=== PATIENT | female | born 1975 | race Caucasian/White ===

== ENCOUNTER 2016-08-30 09:42 | Inpatient (IN) | payer OTHER ==
[2016-08-30] MEDS ORDERED: ACETAMINOPHEN 325 MG TABLET (FP) PO ONE ×2 (10:02→13:49)
[2016-08-30 10:10] VITALS: BMI 22.3
[2016-08-30 11:35] LABS: URINE APPEARANCE CLOUDY; URINE COLOR AMBER; URINE GLUCOSE (UA) 2+ (NEGATIVE); URINE KETONE 1+ (NEGATIVE); URINE NITRITE NEGATIVE (NEGATIVE); URINE UROBILINOGEN 2.0 E.U/dl E.U./dl (0.2-1.0)
[2016-08-30 11:36] LABS: URINE BLOOD 3+ (NEGATIVE); URINE LEUK ESTERASE TRACE (NEGATIVE); URINE PROTEIN 3+ (NEGATIVE)
[2016-08-30 11:41] LABS: URINE HYALINE CAST 7 /lpf; URINE MUCUS MANY; URINE RBC 1071 /hpf (0-3); URINE WBC 27 /hpf (3-5); WAXY CAST 3 /lpf
[2016-08-30] MEDS ORDERED: SODIUM CHLORIDE 0.9% 500 ML INFUS.BAG IV STA (11:41)
[2016-08-30] MEDS ORDERED: ACETAMINOPHEN INJECTION 100 ML IVPB ONE (11:54)
[2016-08-30] MEDS: ACETAMINOPHEN 1000 MG/100 ML VIAL (NON FORMULARY) IVPB ONE ×2 (12:02→12:06)
[2016-08-30 12:15] LABS: MCH 31.2 pg (25.7-33.7); MCHC 34.6 g/dl (32.0-36.0); MEAN CELL VOLUME 90.2 fl (80-96); MEAN PLT VOLUME 8.1 fl (7.5-11.1); PLATELET COUNT 123 K/MM3 (134-434); RDW 13.7 % (11.6-15.6); WHITE BLOOD COUNT 6.8 K/mm3 (4.0-10.0)
[2016-08-30] MEDS ORDERED: CEFAZOLIN 1 GM/D5W 50 ML IVPB ONE (12:15)
--- NOTE | 2016-08-30 12:20 | PDOC ---
History of Present Illness - General Chief Complaint: Cold Symptoms Stated Complaint: FEVER, CHILLS, HEADACHE Time Seen by Provider: 08/30/16 10:51 History Source: Patient, Friend - History of Present Illness Initial Comments: 08/30/16 12:17 41 yr female history of NIDDM presents with fever, chills body aches for one day. Pt denies abd pain no urinary complaints, vomited once today. no sick contacts, works in [employer] no flu vaccine given this year. No foreign travel , denies no vaginal discharge . 08/30/16 12:19 08/30/16 14:08 Severity: mild, moderate Associated Symptoms: reports: fever/chills, nausea/vomiting Past History - Past Medical History Allergies/Adverse Reactions: Allergies Allergy/AdvReac Type Severity Reaction Status Date / Time No Known Allergies Allergy Verified 08/30/16 10:02 Home Medications: Ambulatory Orders Metformin HCl 500 mg PO BID 08/30/16 Diabetes: Yes - Family Disease History Comment:: 08/30/16 12:19 none relevant - Psycho/Social/Smoking Cessation Hx Suicidal Ideation: No Smoking History: Never smoked Hx Alcohol Use: No Drug/Substance Use Hx: No Substance Use Type: None Review of Systems - Review of Systems Able to Perform ROS?: Yes Is the patient limited Arabic proficient: No Constitutional: Yes: Symptoms Reported, Fever, Malaise, Weakness HEENTM: No: Symptoms Reported Respiratory: Yes: Symptoms reported, Cough Cardiac (ROS): No: Symptoms Reported ABD/GI: No: Symptoms Reported : No: Symptoms Reported Musculoskeletal: Yes: Joint Pain Integumentary: No: Symptoms Reported Neurological: No: Symptoms reported *Physical Exam - Vital Signs Last Vital Signs Temp Pulse Resp BP Pulse Ox 101.6 F H 126 H 20 95/57 98 08/30/16 09:59 08/30/16 09:59 08/30/16 09:59 08/30/16 09:59 08/30/16 09:59 - Physical Exam General Appearance: Yes: Nourished, Appropriately Dressed HEENT: positive: EOMI, PAULA, Normal ENT Inspection Neck: positive: Supple. negative: Tender (currently menstruating) Respiratory/Chest: positive: Lungs Clear, Normal Breath Sounds. negative: Chest Tender, Accessory Muscle Use Cardiovascular: positive: Regular Rhythm, Regular Rate Female Pelvic Exam: positive: vaginal bleeding Gastrointestinal/Abdominal: positive: Normal Bowel Sounds, Soft Musculoskeletal: positive: Normal Inspection. negative: CVA Tenderness, CVA Tenderness (R) Extremity: positive: Normal Capillary Refill, Normal Inspection, Normal Range of Motion. negative: Pedal Edema Integumentary: positive: Normal Color, Dry, Warm Neurologic: positive: Fully Oriented, Alert, Normal Mood/Affect, Normal Response , Motor Strength 5/5 ED Treatment Course - LABORATORY CBC & Chemistry Diagram: 08/31/16 07:00 08/31/16 07:00 - ADDITIONAL ORDERS Additional order review: Laboratory Results 08/30/16 11:12 Urine Color Jacquelin Urine Appearance Cloudy Urine pH 5.0 Ur Specific [place] 1.033 Urine Protein 3+ H Urine Glucose (UA) 2+ H Urine Ketones 1+ H Urine Blood 3+ H Urine Nitrite Negative Urine Bilirubin 2.0 Urine Urobilinogen 2.0 e.u/dl H Ur Leukocyte Esterase Trace H Urine RBC 1071 Urine WBC 27 Ur Epithelial Cells Rare Hyaline Casts 7 Waxy Casts 3 Urine Mucus Many Urine HCG, Qual Negative 08/30/16 11:12 Influenza Types A,B Antigen (JONATHAN) - Final Nasopharyngeal Swab - Final - Medications Given in the ED: ED Medications Discontinued Medications Generic Name Dose Route Start Last Admin Trade Name Freq PRN Reason Stop Dose Admin Acetaminophen 650 mg 08/30/16 10:02 08/30/16 10:03 Tylenol - PO 08/30/16 10:03 650 mg NOW ONE Administration Acetaminophen 1,000 mg 08/30/16 11:41 08/30/16 12:06 Ofirmev Injection - IVPB 08/30/16 11:42 Not Given ONCE ONE Sodium Chloride 1,000 ml 08/30/16 11:41 08/30/16 11:57 Normal Saline - IV 08/30/16 11:42 1,000 ml ONCE STA Administration Medical Decision Making - Medical Decision Making 08/30/16 14:01 cc: fever, body aches, chills , vomiting this am will check labs, flu, urine IVF, tylenol 08/30/16 14:01 pt has rigors , chills nausea, labs and US reviewed. discussed [facility] ER attending who agrees with plan. will admit to hospitalist discussed case *DC/Admit/Observation/Transfer Diagnosis at time of Disposition: Fever and chills, Pyelonephritis - Discharge Dispostion Admit: Yes
[2016-08-30] MEDS ORDERED: CEFAZOLIN (PRE-DOCKED) 50 ML IVPB ONE (12:25)
[2016-08-30 12:28] LABS: ALBUMIN 3.4 g/dl (3.4-5.0); ALK PHOS 77 U/L (45-117); ANION GAP 10 (8-16); BILIRUBIN,TOTAL 0.7 mg/dL (0.2-1.0); CO2 24 mmol/L (21-32); GLUCOSE,RANDOM 243 mg/dL (74-106); SGOT/AST 35 U/L (15-37); SGPT/ALT 48 U/L (12-78); TOT PROT 6.4 g/dl (6.4-8.2)
[2016-08-30] MEDS ORDERED: ACETAMINOPHEN 325 MG TABLET (FP) ONE (13:55)
[2016-08-30] MEDS ORDERED: SODIUM CHLORIDE 1,000 ML IV SCH (14:30)
[2016-08-30] MEDS ORDERED: ONDANSETRON 4 MG/2 ML VIAL IVPB PRN (14:47)
--- NOTE | 2016-08-30 15:01 | HP ---
CHIEF COMPLAINT: Fever and chills HISTORY OF PRESENT ILLNESS: This is a 41-year-old woman who comes to the ER today complaining of headache, fever and chills for the last 4 days. Today she developed epigastric pain and nausea, and she vomited once. She denies cough, sore throat, cheat pain, diarrhea, flank pain, hematuria, urinary frequency. She has had a few episodes of dysuria in the last few weeks. PAST MEDICAL HISTORY Type 2 diabetes mellitus PAST SURGICAL HISTORY None Allergies No Known Allergies Allergy (Verified 08/30/16 10:02) HOME MEDICATIONS 3 Medication Instructions Recorded Metformin HCl 500 mg PO BID 08/30/16 Social History: Smoking: Never smoked Alcohol: None Drugs: None Recent Travel: No Family History: Non-contributory REVIEW OF SYSTEMS CONSTITUTIONAL: Present: fever, chills. Absent: diaphoresis, generalized weakness, malaise, loss of appetite, weight change HEENT: Absent: rhinorrhea, nasal congestion, throat pain, throat swelling, difficulty swallowing, mouth swelling, ear pain, eye pain, visual changes CARDIOVASCULAR: Absent: chest pain, syncope, palpitations, lightheadedness, peripheral edema RESPIRATORY: Absent: cough, shortness of breath, dyspnea with exertion, orthopnea, wheezing, stridor, hemoptysis GASTROINTESTINAL: Present epigastric pain, nausea, vomiting. Absent: abdominal distension, diarrhea, constipation, melena, hematochezia GENITOURINARY: Present: dysuria. Absent: frequency, urgency, hesitancy, hematuria, flank pain MUSCULOSKELETAL: Absent: myalgia, arthralgia, joint swelling, back pain, neck pain SKIN: Absent: rash, itching, pallor HEMATOLOGIC/IMMUNOLOGIC: Absent: easy bleeding, easy bruising, lymphadenopathy, frequent infections ENDOCRINE: Absent: unexplained weight gain, unexplained weight loss, heat intolerance, cold intolerance NEUROLOGIC: Present: headache. Absent: focal weakness, paresthesias, dizziness , unsteady gait, seizure, mental status changes, bladder or bowel incontinence PSYCHIATRIC: Absent: anxiety, depression, suicidal or homicidal ideation, hallucinations. PHYSICAL EXAMINATION Vital Signs Period Temp Pulse Resp BP Sys/Barnard Pulse Ox Last 24 Hr 101.6 F 126 20 95/57 98 GENERAL: Awake, alert, and fully oriented, in no acute distress. HEAD: Normal with no signs of trauma. EYES: Pupils equal, round and reactive to light, extraocular movements intact, sclerae anicteric, conjunctivae clear. EARS, NOSE, THROAT: Ears normal, nares patent, oropharynx clear without exudates. Moist mucous membranes. NECK: Normal range of motion, supple without lymphadenopathy, JVD, or masses. LUNGS: Breath sounds equal, clear to auscultation bilaterally. No wheezes, and no crackles. No accessory muscle use. HEART: Tachycardic, normal S1 and S2 without murmur, rub or gallop. ABDOMEN: Soft, nontender, not distended, normoactive bowel sounds, no guarding, no rebound, no masses. No hepatomegaly or splenomegaly. MUSCULOSKELETAL: Normal range of motion at all joints. No bony deformities or tenderness. No CVA tenderness. UPPER EXTREMITIES: 2+ pulses, warm, well-perfused. No cyanosis. No clubbing. Cap refill <2 seconds. No peripheral edema. LOWER EXTREMITIES: 2+ pulses, warm, well-perfused. No calf tenderness. No peripheral edema. NEUROLOGICAL: Cranial nerves II-XII intact. Normal speech. Gait not observed. PSYCHIATRIC: Cooperative. Good eye contact. Appropriate mood and affect. SKIN: Warm, dry, normal turgor, no rashes or lesions noted. Laboratory Tests 08/30/16 08/30/16 08/30/16 11:12 11:42 11:42 WBC 6.8 RBC 3.98 Hgb 12.4 Hct 35.9 MCV 90.2 MCHC 34.6 RDW 13.7 Plt Count 123 L MPV 8.1 Sodium 132 L Potassium 4.2 Chloride 98 Carbon Dioxide 24 Anion Gap 10 BUN 18 Creatinine 1.0 Creat Clearance w eGFR > 60 Random Glucose 243 H Calcium 8.0 L Total Bilirubin 0.7 AST 35 ALT 48 Alkaline Phosphatase 77 Total Protein 6.4 Albumin 3.4 Urine Color Jacquelin Urine Appearance Cloudy Urine pH 5.0 Ur Specific [place] 1.033 Urine Protein 3+ H Urine Glucose (UA) 2+ H Urine Ketones 1+ H Urine Blood 3+ H Urine Nitrite Negative Urine Bilirubin 2.0 Urine Urobilinogen 2.0 e.u/dl H Ur Leukocyte Esterase Trace H Urine RBC 1071 Urine WBC 27 Ur Epithelial Cells Rare Hyaline Casts 7 Waxy Casts 3 Urine Mucus Many Urine HCG, Qual Negative Chest x-ray: No acute process. Renal US: Minimal fullness of renal pelvic calyceal systems bilaterally. Gallbladder polyps vs non-shadowing stones. ASSESSMENT/PLAN: This is a 41-year-old woman with a history of type 2 DM who comes to the ER today with fever, chills, headache, epigastric pain, nausea and vomiting. She had temp 101.6, HR 126. She was found to have WBC 6.8, platelets 123, sodium 132 , glucose 243. Urinalysis is positive for 3+ protein, 2+ glucose, 1+ ketones, 3 + blood, bilirubin 2.0, urobilinogen 2.0, trace leukocyte esterase, 27 WBC. Renal US showed minimal fullness of bilateral renal calyceal systems. 1. Sepsis secondary to UTI - Check lactic acid - IV fluid - Rocephin - Follow up blood, urine cultures - Zofran as needed for nausea - CT to evaluate for stones/obstruction given abnormal US 2. Type 2 diabetes mellitus - Hold Metformin - Fingersticks with Novolog sliding scale 3. Hyponatremia, mild - Corrected sodium is 134 - IV normal saline - Monitor electrolytes 4. Thrombocytopenia, likely secondary to sepsis - Monitor platelets Problem List - Problem (1) Sepsis Code(s): A41.9 - SEPSIS, UNSPECIFIED ORGANISM (2) UTI (urinary tract infection) Code(s): N39.0 - URINARY TRACT INFECTION, SITE NOT SPECIFIED (3) Hyponatremia Code(s): E87.1 - HYPO-OSMOLALITY AND HYPONATREMIA (4) Thrombocytopenia Code(s): D69.6 - THROMBOCYTOPENIA, UNSPECIFIED (5) Type 2 diabetes mellitus Code(s): E11.9 - TYPE 2 DIABETES MELLITUS WITHOUT COMPLICATIONS Visit type - Emergency Visit Emergency Visit: Yes ED Registration Date: 08/30/16 Care time: The patient presented to the Emergency Department on the above date and was hospitalized for further evaluation of their emergent condition. - New Patient This patient is new to me today: Yes Date on this admission: 08/30/16 - Critical Care Critical Care patient: No
[2016-08-30] MEDS ORDERED: CEFTRIAXONE 50 ML ONE (18:18)
[2016-08-30] MEDS: CEFTRIAXONE 50 ML IVPB SCH (18:25)
[2016-08-30] MEDS: INSULIN SLIDING SCALE (NOVOLOG) 1 VIAL SQ SCH (18:25)
[2016-08-30] MEDS: SODIUM CHLORIDE 1,000 ML IV SCH ×2 (18:25→20:07)
[2016-08-31] MEDS: ACETAMINOPHEN 325 MG TABLET (FP) PO PRN ×2 (01:35→12:35)
[2016-08-31] MEDS ORDERED: SODIUM CHLORIDE 500 ML IV STA (02:04)
[2016-08-31] MEDS: SODIUM CHLORIDE 1,000 ML IV SCH ×2 (04:39→13:41)
[2016-08-31] MEDS: INSULIN SLIDING SCALE (NOVOLOG) 1 VIAL SQ SCH ×3 (06:13→16:34)
[2016-08-31 08:37] LABS: BASOPHIL 0.3 % (0-2.0); MCH 31.5 pg (25.7-33.7); MCHC 34.5 g/dl (32.0-36.0); MEAN CELL VOLUME 91.2 fl (80-96); MEAN PLT VOLUME 8.3 fl (7.5-11.1); NEUTROPHILS 86.4 % (42.8-82.8); PLATELET COUNT 86 K/MM3 (134-434); RDW 13.7 % (11.6-15.6); WHITE BLOOD COUNT 4.8 K/mm3 (4.0-10.0)
[2016-08-31 08:41] LABS: CREATININE 0.4 mg/dL (0.55-1.02)
[2016-08-31 08:55] LABS: CALCIUM 6.5 mg/dL (8.5-10.1)
--- NOTE | 2016-08-31 09:04 | PN ---
Teaching Attending Note Name of Resident: Margot Friedman ATTENDING PHYSICIAN STATEMENT I saw and evaluated the patient. I reviewed the resident's note and discussed the case with the resident. I agree with the resident's findings and plan as documented. SUBJECTIVE: Patient is having fever of 101.8, warm to touch at the time of examination. OBJECTIVE: Vital Signs Temperature 97.7 F 08/31/16 06:00 Pulse Rate 88 08/31/16 06:00 Respiratory Rate 08/31/16 06:00 Blood Pressure 90/55 08/31/16 06:00 O2 Sat by Pulse Oximetry (%) 98 08/30/16 18:26 no CVA tenderness. CBCD WBC 4.8 K/mm3 (4.0-10.0) 08/31/16 07:00 RBC 3.09 M/mm3 (3.60-5.2) L D 08/31/16 07:00 Hgb 9.7 GM/dL (10.7-15.3) L D 08/31/16 07:00 Hct 28.2 % (32.4-45.2) L D 08/31/16 07:00 MCV 91.2 fl (80-96) 08/31/16 07:00 MCHC 34.5 g/dl (32.0-36.0) 08/31/16 07:00 RDW 13.7 % (11.6-15.6) 08/31/16 07:00 Plt Count 86 K/MM3 (134-434) L D 08/31/16 07:00 MPV 8.3 fl (7.5-11.1) 08/31/16 07:00 CMP Sodium 143 mmol/L (136-145) 08/31/16 07:00 Potassium 3.6 mmol/L (3.5-5.1) 08/31/16 07:00 Chloride 111 mmol/L (98-107) H D 08/31/16 07:00 Carbon Dioxide 24 mmol/L (21-32) 08/31/16 07:00 Anion Gap 8 (8-16) 08/31/16 07:00 BUN 8 mg/dL (7-18) D 08/31/16 07:00 Creatinine 0.4 mg/dL (0.55-1.02) L D 08/31/16 07:00 Creat Clearance w eGFR > 60 (>60) 08/30/16 11:42 Random Glucose 85 mg/dL (74-106) D 08/31/16 07:00 Calcium 6.5 mg/dL (8.5-10.1) L* 08/31/16 07:00 Total Bilirubin 0.7 mg/dL (0.2-1.0) 08/30/16 11:42 AST 35 U/L (15-37) 08/30/16 11:42 ALT 48 U/L (12-78) 08/30/16 11:42 Alkaline Phosphatase 77 U/L (45-117) 08/30/16 11:42 Total Protein 6.4 g/dl (6.4-8.2) 08/30/16 11:42 Albumin 3.4 g/dl (3.4-5.0) 08/30/16 11:42 Current Medications Generic Name Dose Route Start Last Admin Trade Name Freq PRN Reason Stop Dose Admin Acetaminophen 650 mg 08/30/16 14:47 08/31/16 01:35 Tylenol - PO 650 mg Q4H PRN Administration FEVER OR PAIN Sodium Chloride 1,000 mls @ 125 mls/hr 08/30/16 15:00 08/31/16 04:39 Normal Saline - IV 125 mls/hr ASDIR TESSA Administration Ceftriaxone Sodium 50 mls @ 100 mls/hr 08/30/16 17:15 08/30/16 18:25 Rocephin 1gm Ivpb (Pre-Docked) IVPB 100 mls/hr DAILY TESSA Administration Insulin Aspart 1 vial 08/30/16 16:30 08/31/16 06:13 Novolog Vial Sliding Scale - SQ Not Given TIDAC [facility] Protocol Ondansetron HCl 4 mg 08/30/16 14:47 Zofran Injection IVPB Q4H PRN NAUSEA Medication Instructions Recorded Metformin HCl 500 mg PO BID 08/30/16 Urine Test Results Urine Color Jacquelin 08/30/16 11:12 Urine Appearance Cloudy 08/30/16 11:12 Urine pH 5.0 (5.0-8.0) 08/30/16 11:12 Ur Specific [place] 1.033 (1.001-1.035) 08/30/16 11:12 Urine Protein 3+ (NEGATIVE) H 08/30/16 11:12 Urine Glucose (UA) 2+ (NEGATIVE) H 08/30/16 11:12 Urine Ketones 1+ (NEGATIVE) H 08/30/16 11:12 Urine Blood 3+ (NEGATIVE) H 08/30/16 11:12 Urine Nitrite Negative (NEGATIVE) 08/30/16 11:12 Urine Bilirubin 2.0 (NEGATIVE) 08/30/16 11:12 Ur Leukocyte Esterase Trace (NEGATIVE) H 08/30/16 11:12 Urine RBC 1071 /hpf (0-3) 08/30/16 11:12 Urine WBC 27 /hpf (3-5) 08/30/16 11:12 Ur Epithelial Cells Rare /hpf (FEW) 08/30/16 11:12 Urine Mucus Many 08/30/16 11:12 Chest x-ray: No acute process. Renal US: Minimal fullness of renal pelvic calyceal systems bilaterally. Gallbladder polyps vs non-shadowing stones. ASSESSMENT/PLAN: This is a 41-year-old woman with a history of type 2 DM who comes to the ER today with fever, chills, headache, epigastric pain, nausea and vomiting. She had temp 101.6, HR 126. She is admitted for sepsis due to UTI. # Acute Sepsis due to UTI, Patient is having fever will increase IV fluids to 200ml/hr # Gram negative Bacteremia 3/4 culture positive oN zOSYN PER , ID consulted #T2dm Hold Metformin ; SS WITH COVERAGE # Hyponatremia, oN ivf 0.9ns # aCUTE Thrombocytopenia, DUE TO sepsis DVT PPX: SCds
[2016-08-31] MEDS: CEFTRIAXONE 50 ML IVPB SCH (09:36)
--- NOTE | 2016-08-31 10:54 | PN ---
Progress Note, Physician Chief Complaint: ID This is a 41 year old [place] female [place] the [place] admitted with complaints of fevers chills over the last 4 days. Saw her PMD 2 days ago and given an antibiotic ? name. She report epigastric discomfort with nausea and vomiting. She denies urinary complaints and says she has her menses now. 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 She denies HIV risks alcohol or drugs and has no travel history. She has not eaten any unusual food. She is diabetic. Sonogram did not show cholecystitis and LFTS were normal WBC is "normal" and platelets are low - Current Medication List Current Medications: Active Medications Acetaminophen (Tylenol -) 650 mg PO Q4H PRN PRN Reason: FEVER OR PAIN Last Admin: 08/31/16 01:35 Dose: 650 mg Sodium Chloride (Normal Saline -) 1,000 mls @ 125 mls/hr IV ASDIR [facility] Last Admin: 08/31/16 04:39 Dose: 125 mls/hr Ceftriaxone Sodium (Rocephin 1gm Ivpb (Pre-Docked)) 50 mls @ 100 mls/hr IVPB DAILY [facility] Last Admin: 08/31/16 09:36 Dose: 100 mls/hr Insulin Aspart (Novolog Vial Sliding Scale -) 1 vial SQ TIDAC [facility] PRN Reason: Protocol Last Admin: 08/31/16 06:13 Dose: Not Given Ondansetron HCl (Zofran Injection) 4 mg IVPB Q4H PRN PRN Reason: NAUSEA - Objective Vital Signs: Vital Signs Temperature 98.1 F 08/31/16 09:15 Pulse Rate 114 H 08/31/16 09:15 Respiratory Rate 18 08/31/16 09:15 Blood Pressure 93/55 08/31/16 09:15 O2 Sat by Pulse Oximetry (%) 98 08/30/16 18:26 Constitutional: Yes: Well Nourished, No Distress HENT: Yes: WNL, Atraumatic Neck: Yes: WNL, Supple Cardiovascular: Yes: Regular Rate and Rhythm, S1, S2. No: Murmur Respiratory: Yes: WNL, Regular, CTA Bilaterally Gastrointestinal: Yes: WNL, Normal Bowel Sounds, Soft, Other (mild tenderness epigastric no rebound) Genitourinary: Yes: CVA Tenderness - Left Labs: CBC, BMP 08/31/16 07:00 08/31/16 07:00 Problem List - Problems (1) Pyelonephritis Code(s): N12 - TUBULO-INTERSTITIAL NEPHRITIS, NOT SPCF ACUTE OR CHRONIC (2) Type 2 diabetes mellitus Code(s): E11.9 - TYPE 2 DIABETES MELLITUS WITHOUT COMPLICATIONS (3) Gram-negative bacteremia Code(s): R78.81 - BACTEREMIA Assessment/Plan Laboratory Tests 08/30/16 08/30/16 08/30/16 11:12 11:42 11:42 WBC 6.8 Hgb 12.4 Hct Plt Count 123 L BUN Creatinine Lactic Acid Calcium Total Bilirubin 0.7 AST 35 ALT 48 Urine Protein 3+ H Urine Ketones 1+ H Urine Blood 3+ H Ur Leukocyte Esterase Trace H Urine RBC 1071 Urine WBC 27 08/30/16 08/31/16 08/31/16 14:45 07:00 07:00 WBC 4.8 Hgb 9.7 L D Hct 28.2 L D Plt Count 86 L D BUN 8 D Creatinine 0.4 L D Lactic Acid 1.084 Calcium 6.5 L* Total Bilirubin AST ALT Urine Protein Urine Ketones Urine Blood Ur Leukocyte Esterase Urine RBC Urine WBC Assessment 41 year old female with fever and gram negative bacteremia. I suspect that she urinary tract infection in the setting of menstruation. 3/4 bottles GNB urine pending. Would also consider the biliary tract but sonogram does not suggest this. I am concerned about her relative leukopenia and low platelets likely from gram neg bacteremia. He history of working with fish also interesting because raises the possiblility of water or food related infection such as salmonella aeromonas pseudomonas . [facility] pending c/s HIV testing Await cultures Kunal PEREZ
[2016-08-31] MEDS: PIPERACILLIN/TAZOB 4.5 GM 100 ML IVPB SCH ×2 (11:42→17:25)
[2016-08-31 12:46] LABS: HIV 1 & 2 AB NEGATIVE; HIV 1 AGp24 NEGATIVE
[2016-08-31] MEDS ORDERED: INSULIN (NOVOLOG) ASPART 100 UNITS/ML 10ML VIAL ONE (16:31)
--- NOTE | 2016-08-31 17:22 | PN ---
Physical Exam: SUBJECTIVE: Patient seen and examined. She doesn't have any complaints. Denies dysuria, increased frequency, urgency. OBJECTIVE: Vital Signs Period Temp Pulse Resp BP Sys/Barnard Pulse Ox Last 24 Hr 97.7 F-101.6 F 88-118 16-21 85-101/54-61 98-98 GENERAL: The patient is awake, alert, and fully oriented, in no acute distress. HEAD: Normal with no signs of trauma. EYES: PERRL, extraocular movements intact, sclera anicteric, conjunctiva clear. No ptosis. ENT: Ears normal, nares patent, oropharynx clear without exudates, moist mucous membranes. NECK: Trachea midline, full range of motion, supple. LUNGS: Breath sounds equal, clear to auscultation bilaterally, no wheezes, no crackles, no accessory muscle use. HEART: Regular rate and rhythm, S1, S2 without murmur, rub or gallop. ABDOMEN: Soft, nontender, nondistended, normoactive bowel sounds, no guarding, no rebound, no hepatosplenomegaly, no masses. EXTREMITIES: 2+ pulses, warm, well-perfused, no edema. NEUROLOGICAL: Cranial nerves II through XII grossly intact. Normal speech, gait not observed. PSYCH: Normal mood, normal affect. SKIN: Warm, dry, normal turgor, no rashes or lesions noted Laboratory Results - last 24 hr 08/30/16 08/31/16 08/31/16 18:23 06:12 07:00 WBC 4.8 RBC 3.09 L D Hgb 9.7 L D Hct 28.2 L D MCV 91.2 MCHC 34.5 RDW 13.7 Plt Count 86 L D MPV 8.3 Neutrophils % 86.4 H Lymphocytes % 8.6 Monocytes % 4.7 Eosinophils % 0.0 Basophils % 0.3 Sodium Potassium Chloride Carbon Dioxide Anion Gap BUN Creatinine POC Glucometer [id number] 89 Random Glucose Calcium HIV 1&2 Antibody Screen HIV P24 Antigen 08/31/16 08/31/16 08/31/16 07:00 11:40 11:56 WBC RBC Hgb Hct MCV MCHC RDW Plt Count MPV Neutrophils % Lymphocytes % Monocytes % Eosinophils % Basophils % Sodium 143 Potassium 3.6 Chloride 111 H D Carbon Dioxide 24 Anion Gap 8 BUN 8 D Creatinine 0.4 L D POC Glucometer 135 Random Glucose 85 D Calcium 6.5 L* HIV 1&2 Antibody Screen Negative HIV P24 Antigen Negative 08/31/16 16:26 WBC RBC Hgb Hct MCV MCHC RDW Plt Count MPV Neutrophils % Lymphocytes % Monocytes % Eosinophils % Basophils % Sodium Potassium Chloride Carbon Dioxide Anion Gap BUN Creatinine POC Glucometer 172 Random Glucose Calcium HIV 1&2 Antibody Screen HIV P24 Antigen Active Medications Generic Name Dose Route Start Last Admin Trade Name Freq PRN Reason Stop Dose Admin Acetaminophen 650 mg 08/30/16 14:47 08/31/16 12:35 Tylenol - PO 650 mg Q4H PRN Administration FEVER OR PAIN Piperacillin Sod/Tazobactam Sod 100 mls @ 200 mls/hr 08/31/16 11:30 08/31/16 11 :42 Zosyn 4.5gm Ivpb (Pre-Docked) IVPB 200 mls/hr Q8H-IV TESSA Administration Sodium Chloride 1,000 mls @ 200 mls/hr 08/31/16 12:22 08/31/16 13:41 Normal Saline - IV 200 mls/hr ASDIR TESSA Administration Insulin Aspart 1 vial 08/30/16 16:30 08/31/16 16:34 Novolog Vial Sliding Scale - SQ 2 unit TIDAC TESSA Administration Protocol Ondansetron HCl 4 mg 08/30/16 14:47 Zofran Injection IVPB Q4H PRN NAUSEA Chest x-ray: No acute process. Renal US: Minimal fullness of renal pelvic calyceal systems bilaterally. Gallbladder polyps vs non-shadowing stones. ASSESSMENT/PLAN: This is a 41-year-old woman with a history of type 2 DM who comes to the ER today with fever, chills, headache, epigastric pain, nausea and vomiting. She had temp 101.6, HR 126. She is admitted for sepsis due to UTI. Sepsis secondary to UTI - lactic acid nl, - IV fluids increased to 200ml/hr - cont Rocephin - Blood cx G neg rods - ID consulted - Zofran as needed for nausea -Tylenol PRN for fever -consider CT abdomen tomorrow Type 2 diabetes mellitus - Hold Metformin - Fingersticks with Novolog sliding scale Hyponatremia, mild - Corrected sodium is 134 - IV normal saline - Monitor electrolytes Thrombocytopenia, likely secondary to sepsis - Monitor platelets DVT PPX: SCds Disposition: Med surg Problem List - Problems (1) Gram-negative bacteremia Code(s): R78.81 - BACTEREMIA (2) Hyponatremia Code(s): E87.1 - HYPO-OSMOLALITY AND HYPONATREMIA (3) Sepsis Code(s): A41.9 - SEPSIS, UNSPECIFIED ORGANISM Visit type - Emergency Visit Emergency Visit: Yes ED Registration Date: 08/30/16 Care time: The patient presented to the Emergency Department on the above date and was hospitalized for further evaluation of their emergent condition. - New Patient This patient is new to me today: Yes Date on this admission: 08/31/16 - Critical Care Critical Care patient: No - Discharge Referral Referred to [facility] Med [facility] No
[2016-09-01] MEDS: SODIUM CHLORIDE 1,000 ML IV SCH ×3 (00:35→10:45)
[2016-09-01] MEDS: ACETAMINOPHEN 325 MG TABLET (FP) PO PRN (00:35)
[2016-09-01] MEDS: PIPERACILLIN/TAZOB 4.5 GM 100 ML IVPB SCH ×3 (01:43→17:23)
[2016-09-01] MEDS: INSULIN SLIDING SCALE (NOVOLOG) 1 VIAL SQ SCH ×3 (06:35→16:41)
[2016-09-01 08:17] LABS: CREATININE 0.5 mg/dL (0.55-1.02); MCH 31.1 pg (25.7-33.7); MCHC 34.3 g/dl (32.0-36.0); MEAN CELL VOLUME 90.7 fl (80-96); MEAN PLT VOLUME 8.2 fl (7.5-11.1); PLATELET COUNT 96 K/MM3 (134-434); RDW 13.9 % (11.6-15.6); WHITE BLOOD COUNT 4.4 K/mm3 (4.0-10.0)
[2016-09-01 08:30] LABS: CALCIUM 6.9 mg/dL (8.5-10.1)
--- NOTE | 2016-09-01 14:23 | PN ---
Physical Exam: SUBJECTIVE: Patient seen and examined Comfortable with no acute distress. OBJECTIVE: Vital Signs Temperature 98 F 09/01/16 08:00 Pulse Rate 94 H 09/01/16 08:00 Respiratory Rate 20 09/01/16 08:00 Blood Pressure 95/59 09/01/16 08:00 O2 Sat by Pulse Oximetry (%) 95 09/01/16 09:00 GENERAL: The patient is awake, alert, and fully oriented, in no acute distress. HEAD: Normal with no signs of trauma. EYES: PERRL, extraocular movements intact, sclera anicteric, conjunctiva clear. ENT: Ears normal, oropharynx clear without exudates, moist mucous membranes. NECK: Trachea midline, full range of motion, supple. LUNGS: Breath sounds equal, clear to auscultation bilaterally, no wheezes, no crackles, no accessory muscle use. HEART: Regular rate and rhythm, S1, S2 without murmur, rub or gallop. ABDOMEN: Soft, nontender, nondistended, normoactive bowel sounds, no guarding, no rebound, no hepatosplenomegaly, no masses. EXTREMITIES: 2+ pulses, warm, well-perfused, no edema. NEUROLOGICAL: Cranial nerves II through XII grossly intact. Normal speech, gait not observed. PSYCH: Normal mood, normal affect. SKIN: Warm, dry, normal turgor, no rashes or lesions noted CBCD WBC 4.4 K/mm3 (4.0-10.0) 09/01/16 06:25 RBC 2.88 M/mm3 (3.60-5.2) L 09/01/16 06:25 Hgb 9.0 GM/dL (10.7-15.3) L 09/01/16 06:25 Hct 26.1 % (32.4-45.2) L 09/01/16 06:25 MCV 90.7 fl (80-96) 09/01/16 06:25 MCHC 34.3 g/dl (32.0-36.0) 09/01/16 06:25 RDW 13.9 % (11.6-15.6) 09/01/16 06:25 Plt Count 96 K/MM3 (134-434) L 09/01/16 06:25 MPV 8.2 fl (7.5-11.1) 09/01/16 06:25 CMP Sodium 143 mmol/L (136-145) 09/01/16 06:25 Potassium 3.4 mmol/L (3.5-5.1) L 09/01/16 06:25 Chloride 112 mmol/L (98-107) H 09/01/16 06:25 Carbon Dioxide 23 mmol/L (21-32) 09/01/16 06:25 Anion Gap 8 (8-16) 09/01/16 06:25 BUN 3 mg/dL (7-18) L D 09/01/16 06:25 Creatinine 0.5 mg/dL (0.55-1.02) L D 09/01/16 06:25 Creat Clearance w eGFR > 60 (>60) 08/30/16 11:42 Random Glucose 149 mg/dL (74-106) H D 09/01/16 06:25 Calcium 6.9 mg/dL (8.5-10.1) L* 09/01/16 06:25 Total Bilirubin 0.7 mg/dL (0.2-1.0) 08/30/16 11:42 AST 35 U/L (15-37) 08/30/16 11:42 ALT 48 U/L (12-78) 08/30/16 11:42 Alkaline Phosphatase 77 U/L (45-117) 08/30/16 11:42 Total Protein 6.4 g/dl (6.4-8.2) 08/30/16 11:42 Albumin 3.4 g/dl (3.4-5.0) 08/30/16 11:42 Active Medications Generic Name Dose Route Start Last Admin Trade Name Shi PRN Reason Stop Dose Admin Acetaminophen 650 mg 08/30/16 14:47 09/01/16 00:35 Tylenol - PO 650 mg Q4H PRN Administration FEVER OR PAIN Piperacillin Sod/Tazobactam Sod 100 mls @ 200 mls/hr 08/31/16 11:30 09/01/16 10 :44 Zosyn 4.5gm Ivpb (Pre-Docked) IVPB 200 mls/hr Q8H-IV TESSA Administration Sodium Chloride 1,000 mls @ 200 mls/hr 08/31/16 12:22 09/01/16 10:45 Normal Saline - IV 200 mls/hr ASDIR TESSA Administration Insulin Aspart 1 vial 08/30/16 16:30 09/01/16 11:46 Novolog Vial Sliding Scale - SQ 2 unit TIDAC TESSA Administration Protocol Ondansetron HCl 4 mg 08/30/16 14:47 Zofran Injection IVPB Q4H PRN NAUSEA Chest x-ray: No acute process. Renal US: Minimal fullness of renal pelvic calyceal systems bilaterally. Gallbladder polyps vs non-shadowing stones. ASSESSMENT/PLAN: This is a 41-year-old woman with a history of type 2 DM who comes to the ER today with fever, chills, headache, epigastric pain, nausea and vomiting. She had temp 101.6, HR 126. She is admitted for sepsis due to UTI. # Acute Sepsis due to UTI, Patient has no fever today will decrease the IVF to 150ml/hr # Gram negative Bacteremia 3/4 culture positive oN zOSYN PER , ID on the case. #T2dm Hold Metformin ; SS WITH COVERAGE # Hyponatremia, resolved will switch to 1/2 NS at 150cc/hr # aCUTE Thrombocytopenia, improving DUE TO sepsis DVT PPX: SCds Visit type - Emergency Visit Emergency Visit: Yes ED Registration Date: 08/30/16 Care time: The patient presented to the Emergency Department on the above date and was hospitalized for further evaluation of their emergent condition. - New Patient This patient is new to me today: No - Critical Care Critical Care patient: No
[2016-09-01] MEDS: SODIUM CHLORIDE 0.45%/POT 1,000 ML IV SCH ×2 (15:26→22:36)
[2016-09-01] MEDS ORDERED: INSULIN (NOVOLOG) ASPART 100 UNITS/ML 10ML VIAL ONE (16:18)
--- NOTE | 2016-09-01 17:17 | PN ---
Progress Note (short form) - Note Progress Note: still some mid epigastric discomfort no vomiting fever overnight Vital Signs Period Temp Pulse Resp BP Sys/Barnard Pulse Ox Last 24 Hr 97.7 F-101.0 F 83-108 20-24 95-117/59-67 95 cor-rrr lungs clear abd soft, mild midepigastric discomfort to palpation ext no edema CBC, BMP 09/01/16 06:25 09/01/16 06:25 Microbiology 08/30/16 16:20 Blood - Peripheral Venous Blood Culture - Preliminary Escherichia Coli Non Lactose Fermenting Gnb#2 08/30/16 16:20 Blood - Peripheral Venous Blood Culture - Preliminary Non Lactose Fermenting Gnb 08/30/16 11:35 Urine - Urine Clean Catch Urine Culture - Final 08/30/16 11:12 Nasopharyngeal Swab Influenza Types A,B Antigen (JONATHAN) - Final 08/30/16 11:12 Nasopharyngeal Swab - Final a/p gram negative bacteremia prior sonogram unrevealing of sono and gallbladder spoke with micro- polymicrobial? will repeat ct scan abd/pelvis with contrast esr/crp repeat blood cultures for further fever d/w hospitalist service
[2016-09-02] MEDS: PIPERACILLIN/TAZOB 4.5 GM 100 ML IVPB SCH ×2 (01:44→09:54)
[2016-09-02] MEDS: SODIUM CHLORIDE 0.45%/POT 1,000 ML IV SCH (05:37)
[2016-09-02] MEDS: INSULIN SLIDING SCALE (NOVOLOG) 1 VIAL SQ SCH ×2 (06:36→11:50)
[2016-09-02 09:03] LABS: MCH 30.9 pg (25.7-33.7); MCHC 34.5 g/dl (32.0-36.0); MEAN CELL VOLUME 89.6 fl (80-96); NEUTROPHILS 58.8 % (42.8-82.8); PLATELET COUNT 146 K/MM3 (134-434); RDW 13.8 % (11.6-15.6); WHITE BLOOD COUNT 4.2 K/mm3 (4.0-10.0)
[2016-09-02 09:04] LABS: BASOPHIL 0.4 % (0-2.0); EOSINOPHIL 0.8 % (0-4.5)
[2016-09-02 10:18] LABS: ALBUMIN 2.6 g/dl (3.4-5.0); ANION GAP 8 (8-16); CALCIUM 7.4 mg/dL (8.5-10.1); CO2 25 mmol/L (21-32); CREATININE 0.5 mg/dL (0.55-1.02); GLUCOSE,RANDOM 150 mg/dL (74-106); SGOT/AST 54 U/L (15-37); SGPT/ALT 76 U/L (12-78)
[2016-09-02 10:20] LABS: ALK PHOS 223 U/L (45-117); BILIRUBIN,TOTAL 0.6 mg/dL (0.2-1.0); TOT PROT 5.5 g/dl (6.4-8.2)
--- NOTE | 2016-09-02 10:31 | PN ---
Progress Note, Physician Chief Complaint: ID No complaints - Current Medication List Current Medications: Active Medications Acetaminophen (Tylenol -) 650 mg PO Q4H PRN PRN Reason: FEVER OR PAIN Last Admin: 09/01/16 00:35 Dose: 650 mg Piperacillin Sod/Tazobactam Sod (Zosyn 4.5gm Ivpb (Pre-Docked)) 100 mls @ 200 mls/hr IVPB Q8H-IV TESSA Last Admin: 09/02/16 09:54 Dose: 200 mls/hr Potassium Chloride/Sodium Chloride (1/2ns+20meq Kcl) 1,000 mls @ 125 mls/hr IV ASDIR TESSA Last Admin: 09/02/16 05:37 Dose: 125 mls/hr Insulin Aspart (Novolog Vial Sliding Scale -) 1 vial SQ TIDAC TESSA PRN Reason: Protocol Last Admin: 09/02/16 06:36 Dose: 2 unit Ondansetron HCl (Zofran Injection) 4 mg IVPB Q4H PRN PRN Reason: NAUSEA - Objective Vital Signs: Vital Signs Temperature 99.1 F 09/02/16 05:41 Pulse Rate 91 H 09/02/16 05:41 Respiratory Rate 20 09/02/16 05:41 Blood Pressure 115/76 09/02/16 05:41 O2 Sat by Pulse Oximetry (%) 96 09/01/16 21:00 Constitutional: Yes: Well Nourished, No Distress HENT: Yes: WNL, Atraumatic Neck: Yes: WNL, Supple Cardiovascular: Yes: Regular Rate and Rhythm, S1, S2 Respiratory: Yes: WNL, Regular, CTA Bilaterally Gastrointestinal: Yes: Soft. No: Tenderness, Tenderness, Rebound Labs: CBC, BMP 09/02/16 07:30 Problem List - Problems (1) Pyelonephritis Code(s): N12 - TUBULO-INTERSTITIAL NEPHRITIS, NOT SPCF ACUTE OR CHRONIC (2) Type 2 diabetes mellitus Code(s): E11.9 - TYPE 2 DIABETES MELLITUS WITHOUT COMPLICATIONS (3) Gram-negative bacteremia Code(s): R78.81 - BACTEREMIA Assessment/Plan Microbiology 08/30/16 16:20 Blood - Peripheral Venous Blood Culture - Final Escherichia Coli Escherichia Coli#2 08/30/16 16:20 Blood - Peripheral Venous Blood Culture - Final Escherichia Coli Laboratory Tests 09/02/16 07:30 WBC 4.2 Hgb 10.1 L D Hct 29.4 L Plt Count 146 D Assessment E Coli suspect urinary source Doing well Plan CT report seen really no acute GI pelvic pathology Consider quinolone to finish therapy orally Levoflox to finish 14 total days fro the john Syed MD
[2016-09-02] MEDS ORDERED: INSULIN (NOVOLOG) ASPART 100 UNITS/ML 10ML VIAL ONE (11:18)
[2016-09-02] MEDS ORDERED: LEVOFLOXACIN 500 MG TABLET (FP) PO SCH (11:30)
[2016-09-02 14:53] VITALS: BP 130/78; PULSE 75; TEMP 97.8
--- NOTE | 2016-09-02 15:47 | DS ---
Physical Exam: SUBJECTIVE: Patient seen and examined Comfortable no fever or chills, no shortness of breath. OBJECTIVE: Vital Signs Temperature 97.8 F 09/02/16 14:00 Pulse Rate 75 09/02/16 14:00 Respiratory Rate 20 09/02/16 14:00 Blood Pressure 130/78 09/02/16 14:00 O2 Sat by Pulse Oximetry (%) 96 09/01/16 21:00 GENERAL: The patient is awake, alert, and fully oriented, in no acute distress. HEAD: Normal with no signs of trauma. EYES: PERRL, extraocular movements intact, sclera anicteric, conjunctiva clear. ENT: Ears normal, oropharynx clear without exudates, moist mucous membranes. NECK: Trachea midline, full range of motion, supple. LUNGS: Breath sounds equal, clear to auscultation bilaterally, no wheezes, no crackles, no accessory muscle use. HEART: Regular rate and rhythm, S1, S2 without murmur, rub or gallop. ABDOMEN: Soft, nontender, nondistended, normoactive bowel sounds, no guarding, no rebound, no hepatosplenomegaly, no masses. EXTREMITIES: 2+ pulses, warm, well-perfused, no edema. NEUROLOGICAL: Cranial nerves II through XII grossly intact. Normal speech, gait not observed. PSYCH: Normal mood, normal affect. SKIN: Warm, dry, normal turgor, no rashes or lesions noted CBCD WBC 4.2 K/mm3 (4.0-10.0) 09/02/16 07:30 RBC 3.28 M/mm3 (3.60-5.2) L 09/02/16 07:30 Hgb 10.1 GM/dL (10.7-15.3) L D 09/02/16 07:30 Hct 29.4 % (32.4-45.2) L 09/02/16 07:30 MCV 89.6 fl (80-96) 09/02/16 07:30 MCHC 34.5 g/dl (32.0-36.0) 09/02/16 07:30 RDW 13.8 % (11.6-15.6) 09/02/16 07:30 Plt Count 146 K/MM3 (134-434) D 09/02/16 07:30 MPV 8.0 fl (7.5-11.1) 09/02/16 07:30 CMP Sodium 143 mmol/L (136-145) 09/02/16 07:30 Potassium 3.8 mmol/L (3.5-5.1) 09/02/16 07:30 Chloride 110 mmol/L (98-107) H 09/02/16 07:30 Carbon Dioxide 25 mmol/L (21-32) 09/02/16 07:30 Anion Gap 8 (8-16) 09/02/16 07:30 BUN 2 mg/dL (7-18) L* D 09/02/16 07:30 Creatinine 0.5 mg/dL (0.55-1.02) L 09/02/16 07:30 Creat Clearance w eGFR > 60 (>60) 09/02/16 07:30 Random Glucose 150 mg/dL (74-106) H 09/02/16 07:30 Calcium 7.4 mg/dL (8.5-10.1) L 09/02/16 07:30 Total Bilirubin 0.6 mg/dL (0.2-1.0) 09/02/16 07:30 AST 54 U/L (15-37) H D 09/02/16 07:30 ALT 76 U/L (12-78) D 09/02/16 07:30 Alkaline Phosphatase 223 U/L (45-117) H D 09/02/16 07:30 Total Protein 5.5 g/dl (6.4-8.2) L 09/02/16 07:30 Albumin 2.6 g/dl (3.4-5.0) L D 09/02/16 07:30 Active Medications Generic Name Dose Route Start Last Admin Trade Name Freq PRN Reason Stop Dose Admin Acetaminophen 650 mg 08/30/16 14:47 09/01/16 00:35 Tylenol - PO 650 mg Q4H PRN Administration FEVER OR PAIN Potassium Chloride/Sodium Chloride 1,000 mls @ 125 mls/hr 09/01/16 14:45 05:37 1/2ns+20meq Kcl IV 125 mls/hr ASDIR TESSA Administration Insulin Aspart 1 vial 08/30/16 16:30 09/02/16 11:50 Novolog Vial Sliding Scale - SQ 4 unit TIDAC TESSA Administration Protocol Levofloxacin 500 mg 09/02/16 11:30 09/02/16 11:50 Levaquin - PO 500 mg DAILY@0600 TESSA Administration Ondansetron HCl 4 mg 08/30/16 14:47 Zofran Injection IVPB Q4H PRN NAUSEA Medication Instructions Recorded Metformin HCl 500 mg PO BID 08/30/16 Microbiology 08/30/16 16:20 Blood - Peripheral Venous Blood Culture - Final Escherichia Coli 08/30/16 16:20 Blood - Peripheral Venous Blood Culture - Final Escherichia Coli Escherichia Coli#2 08/30/16 11:35 Urine - Urine Clean Catch Urine Culture - Final 08/30/16 11:12 Nasopharyngeal Swab Influenza Types A,B Antigen (JONATHAN) - Final 08/30/16 11:12 Nasopharyngeal Swab - Final Chest x-ray: No acute process. Renal US: Minimal fullness of renal pelvic calyceal systems bilaterally. Gallbladder polyps vs non-shadowing stones. HOSPITAL COURSE: Date of Admission:08/30/16 Date of Discharge: 09/02/16 This is a 41-year-old woman with a history of type 2 DM who comes to the ER today with fever, chills, headache, epigastric pain, nausea and vomiting. She had temp 101.6, HR 126. She is admitted for sepsis due to UTI. # Acute Sepsis due to UTI, seen by ID can be discharged home for 10 more days of antibiotic po antibiotic Levaquin 500mg for total of 14 days. # Gram negative Bacteremia 3/4 culture positive on po levaquin now. #T2dm continue Metformin # Hyponatremia, s/p IVF resolved # aCUTE Thrombocytopenia,improved back to normal now DUE TO sepsis Discharge time 45 minutes Minutes to complete discharge: 45 Discharge Summary Reason For Visit: FEVER, CHILLS, PYELONEPHRITIS Current Active Problems Fever and chills (Acute) Gram-negative bacteremia (Acute) Hyponatremia (Acute) Pyelonephritis (Acute) Sepsis (Acute) Thrombocytopenia (Acute) UTI (urinary tract infection) (Acute) Type 2 diabetes mellitus (Chronic) - Home Medications Comprehensive Discharge Medication List: Ambulatory Orders Metformin HCl 500 mg PO BID 08/30/16 This patient is new to me today: No Emergency Visit: Yes ED Registration Date: 08/30/16 Care time: The patient presented to the Emergency Department on the above date and was hospitalized for further evaluation of their emergent condition. Critical Care patient: No - Discharge Referral Referred to [facility] No Physician Referral: Gilberto Conner MD ([facility])
== END 2016-09-02 17:19 | disposition home or self-care (01) | DRG 720 ==
LOC: JER 09:42 → JERBED 14:13 → J6S 19:40
PROVIDERS: ADMIT Internal Medicine; ATTEND Internal Medicine
DX: A41.50 Gram-negative sepsis, unspecified (principal); N39.0 Urinary tract infection, site not specified; E11.9 Type 2 diabetes mellitus without complications; Z79.84 Long term (current) use of oral hypoglycemic drugs; E87.1 Hypo-osmolality and hyponatremia; D69.6 Thrombocytopenia, unspecified
CPT/HCPCS: 36415; 71020-TC; 74176-TC; 76775-TC; 80048; 80053; 81003; 81015; 83605; 84703; 85025; 85027; 85651; 86140; 87040; 87086; 87186; 87389; 87804; 99285-25; J3480

== ENCOUNTER 2018-07-09 12:50 | Emergency (ER) | payer OTHER ==
[2018-07-09 12:57] VITALS: BP 104/52; PULSE 111; TEMP 99.5; BMI 22.3
--- NOTE | 2018-07-09 14:22 | PDOC ---
History of Present Illness - General Chief Complaint: Cold Symptoms Stated Complaint: FEVER, HEADACHE Time Seen by Provider: 07/09/18 13:50 History Source: Patient Exam Limitations: No Limitations - History of Present Illness Initial Comments: 07/09/18 14:23 Patient came with complaints of worsening wrist pain. Started on the right wrist and now has spread to the left wrist. 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 Denies any recent trauma, has had no accidents or falls. Has had no fevers, swelling or any other pathology to hands. Was concerned about developing arthritis. Severity: reports: mild, moderate Pain Location: reports: upper extremity (rigth and left wrists) Method of Injury: Yes: unknown Modifying Factors: improves with: rest Loss of Consciousness: no loss of consciousness Associated Symptoms (Fall): denies symptoms Past History - Travel Traveled outside of the country in the last 30 days: No Close contact w/someone who was outside of country & ill: No - Past Medical History Allergies/Adverse Reactions: Allergies Allergy/AdvReac Type Severity Reaction Status Date / Time No Known Allergies Allergy Verified 08/30/16 10:02 Home Medications: Ambulatory Orders metFORMIN HCL [Metformin HCl] 500 mg PO BID 08/30/16 Insulin (Levemir) [Levemir Vial] 0 unit SQ DAILY 07/09/18 Naproxen [Naprosyn -] 500 mg PO BID #30 tablet 07/09/18 COPD: No Diabetes: Yes - Immunization History Immunization Up to Date: Yes - Suicide/Smoking/Psychosocial Hx Smoking History: Never smoked Hx Alcohol Use: No Drug/Substance Use Hx: No Substance Use Type: None Review of Systems - Review of Systems Able to Perform ROS?: Yes Is the patient limited Malian proficient: Yes Constitutional: Yes: See HPI. No: Symptoms Reported, Fever, Malaise HEENTM: No: Symptoms Reported Musculoskeletal: Yes: Symptoms Reported, See HPI, Joint Pain, Joint Swelling, Muscle Pain All Other Systems: Reviewed and Negative (and) *Physical Exam - Vital Signs Last Vital Signs Temp Pulse Resp BP Pulse Ox 99.5 F 111 H 16 104/52 L 99 07/09/18 12:55 07/09/18 12:55 07/09/18 12:55 07/09/18 12:55 07/09/18 12:55 - Physical Exam General Appearance: Yes: Nourished, Appropriately Dressed, Mild Distress HEENT: positive: PAULA, Normal ENT Inspection, TMs Normal, Pharynx Normal Neck: positive: Supple. negative: Tender Respiratory/Chest: positive: Lungs Clear Musculoskeletal: positive: Normal Inspection Extremity: positive: Normal Capillary Refill, Normal Inspection. negative: Normal Range of Motion (somewhat limited range of motion with flexion and extension however no crepitus, step-offs, erythema or swelling noted to joint. Able to reproduce pain with flexion and extension of right fourth and fifth digits that extends up ulnar aspect of arm consistent with a tendinopathy. Neurovascular intact distal and strong pulses) Integumentary: positive: Normal Color Neurologic: positive: production trainer II-XII NML intact, Fully Oriented, Alert, Normal Mood/ Affect, Normal Response, Motor Strength 5/5 Moderate Sedation - Procedure Monitoring Vital Signs: Procedure Monitoring Vital Signs Temperature 99.5 F 07/09/18 12:55 Pulse Rate 111 H 07/09/18 12:55 Respiratory Rate 16 07/09/18 12:55 Blood Pressure 104/52 L 07/09/18 12:55 O2 Sat by Pulse Oximetry (%) 99 07/09/18 12:55 Progress Note - Progress Note Progress Note: Tendinitis, we'll splint, recommend NSAIDs and follow-up as needed *DC/Admit/Observation/Transfer Diagnosis at time of Disposition: Tendonitis of wrist, right - Discharge Dispostion Disposition: HOME Condition at time of disposition: Stable Decision to Admit order: No - Referrals Referrals: Royer Cox MD [Staff Physician] - - Patient Instructions Printed Discharge Instructions: DI for Tendinitis Additional Instructions: Rest, ice to area on and off for 15 minutes 4-6 times a day Avoid heavy lifting or exercise until pain and swelling is resolved or until further directed Keep area highly elevated to reduce swelling Use splints/Jonn wrap as directed Followup with orthopedist in one to 2 days if not improving, if significantly improved may wait one week for followup with orthopedist May use ibuprofen 2-200 mg tablets every 6 hours as needed for pain - Post Discharge Activity Forms/Work/School Notes: Back to Work
--- NOTE | 2018-07-09 14:35 | PDOC ---
History of Present Illness - General Chief Complaint: Cold Symptoms Stated Complaint: FEVER, HEADACHE Time Seen by Provider: 07/09/18 13:50 - History of Present Illness Initial Comments: 07/09/18 14:33 43-year-old female insulin-dependent diabetic also takes metformin presents for evaluation of malaise fever chills and night sweats along with dysuria 2 days she also has associated upper back pain Past History - Past Medical History Allergies/Adverse Reactions: Allergies Allergy/AdvReac Type Severity Reaction Status Date / Time No Known Allergies Allergy Verified 08/30/16 10:02 Home Medications: Ambulatory Orders metFORMIN HCL [Metformin HCl] 500 mg PO BID 08/30/16 Insulin (Levemir) [Levemir Vial] 0 unit SQ DAILY 07/09/18 Naproxen [Naprosyn -] 500 mg PO BID #30 tablet 07/09/18 Nitrofurantoin Monohyd/M-Cryst [Macrobid -] 100 mg PO BID #14 capsule 07/09/18 COPD: No Diabetes: Yes - Immunization History Immunization Up to Date: Yes - Suicide/Smoking/Psychosocial Hx Smoking History: Never smoked Hx Alcohol Use: No Drug/Substance Use Hx: No Substance Use Type: None Review of Systems - Review of Systems Is the patient limited Latvian proficient: Yes Constitutional: Yes: Chills, Fever, Malaise, Night Sweats : Yes: Dysuria *Physical Exam - Vital Signs Last Vital Signs Temp Pulse Resp BP Pulse Ox 99.5 F 111 H 16 104/52 L 99 07/09/18 12:55 07/09/18 12:55 07/09/18 12:55 07/09/18 12:55 07/09/18 12:55 - Physical Exam Comments: 07/09/18 14:34 HEAD: NC/AT EYES: Conjuntiva clear Ears: Canals and TM's normal NOSE: No d/c THROAT: Moist mucous membrances, oral pharanx clear, uvula midline NECK: Supple without adenopathy CARDIAC: S1 S2 LUNGS: CTA Full and Equal breath sounds ABDOMEN: Soft NT ND MS: Full ROM in all joints without edema NEUROLOGIC: No gross sensory or motor deficits, NVID SKIN: Normal color and temperature no lesions or rashes Moderate Sedation - Procedure Monitoring Vital Signs: Procedure Monitoring Vital Signs Temperature 99.5 F 07/09/18 12:55 Pulse Rate 111 H 07/09/18 12:55 Respiratory Rate 16 07/09/18 12:55 Blood Pressure 104/52 L 07/09/18 12:55 O2 Sat by Pulse Oximetry (%) 99 07/09/18 12:55 ED Treatment Course - LABORATORY CBC & Chemistry Diagram: 07/09/18 14:35 07/09/18 14:35 *DC/Admit/Observation/Transfer Diagnosis at time of Disposition: UTI (urinary tract infection) Diagnosis at time of Disposition: (Ruled Out): Tendonitis of wrist, right - Discharge Dispostion Disposition: HOME Condition at time of disposition: Stable - Prescriptions Prescriptions: Naproxen [Naprosyn -] 500 mg PO BID #30 tablet Nitrofurantoin Monohyd/M-Cryst [Macrobid -] 100 mg PO BID #14 capsule - Referrals Referrals: Royer Cox MD [Staff Physician] - - Patient Instructions Printed Discharge Instructions: Urinary Tract Infection Additional Instructions: Return to the emergency room should symptoms worsen or go unresolved. Follow-up with your primary care physician one to 2 days and please take the antibiotics as directed. - Post Discharge Activity Forms/Work/School Notes: Back to Work
[2018-07-09 15:04] LABS: BASO % 0.2 % (0-2.0); HEMATOCRIT 37.3 % (32.4-45.2); HEMOGLOBIN 12.1 GM/dL (10.7-15.3); LYMPH % 3.1 % (8-40); MCH 29.6 pg (25.7-33.7); MCHC 32.5 g/dl (32.0-36.0); MEAN CELL VOLUME 91.2 fl (80-96); MEAN PLT VOLUME 8.1 fl (7.5-11.1); MONO % 3.5 % (3.8-10.2); NEUT % 93.2 % (42.8-82.8); PLATELET COUNT 170 K/MM3 (134-434); RBC 4.09 M/mm3 (3.60-5.2); RDW 13.6 % (11.6-15.6); WHITE BLOOD COUNT 13.2 K/mm3 (4.0-10.0)
[2018-07-09 15:08] LABS: URINE APPEARANCE CLEAR; URINE BILIRUBIN NEGATIVE (<2.0 mg/dL); URINE COLOR STRAW; URINE GLUCOSE (UA) 3+ (NEGATIVE); URINE KETONE TRACE (NEGATIVE); URINE LEUK ESTERASE 1+ (NEGATIVE); URINE NITRITE NEGATIVE (NEGATIVE); URINE PROTEIN NEGATIVE (NEGATIVE); URINE UROBILINOGEN NEGATIVE mg/dL (0.2-1.0)
[2018-07-09 15:14] LABS: EPI CELLS RARE /HPF (FEW)
[2018-07-09 15:25] LABS: HCG,QUALITATIVE URINE Negative
[2018-07-09 15:32] LABS: ALBUMIN 3.4 g/dl (3.4-5.0); ALK PHOS 95 U/L (45-117); ANION GAP 8 MMOL/L (8-16); BILIRUBIN,TOTAL 0.6 mg/dL (0.2-1); BLOOD UREA NITROGEN 22 mg/dL (7-18); CALCIUM 8.3 mg/dL (8.5-10.1); CHLORIDE 102 mmol/L (98-107); CO2 24 mmol/L (21-32); CREATININE 0.8 mg/dL (0.55-1.3); GLUCOSE,RANDOM 292 mg/dL (74-106); POTASSIUM 4.1 mmol/L (3.5-5.1); SGOT/AST 29 U/L (15-37); SGPT/ALT 37 U/L (13-61); SODIUM 134 mmol/L (136-145); TOT PROT 6.9 g/dl (6.4-8.2)
[2018-07-09 15:42] LABS: ACANTHOCYTES 0; ANISOCYTOSIS 0; HELMET CELLS 0; HOWELL-JOLLY BODIES 0; MACROCYTOSIS 0; OVALOCYTE 0; PLATELET ESTIMATE NORMAL; ROULEAU 0; SICKELED CELLS 0; TARGET CELLS 0; TEAR DROP CELLS 0; TOXIC GRANULATION 0
== END 2018-07-09 15:52 | disposition home or self-care (01) ==
LOC: JERFT 12:50
PROC: 2W3CX1Z Immobilization of Right Lower Arm using Splint (ICD-10-PCS; principal; 2018-07-09)
DX: M70.88 Other soft tissue disorders related to use, overuse and pressure other site (principal); M77.8 Other enthesopathies, not elsewhere classified; Y93.E9 Activity, other interior property and clothing maintenance
CPT/HCPCS: 29125; 36415; 80053; 81003; 81015; 84703; 85025; 87086; 99281-25

== ENCOUNTER 2019-02-12 23:23 | Emergency (ER) | payer OTHER ==
[2019-02-12 23:39] VITALS: BP 193/98; PULSE 102; TEMP 98.3; BMI 20.6
--- NOTE | 2019-02-13 00:35 | PDOC ---
History of Present Illness - General Chief Complaint: Toothache Stated Complaint: TOOTHACHE Time Seen by Provider: 02/13/19 00:34 Past History - Past Medical History Allergies/Adverse Reactions: Allergies Allergy/AdvReac Type Severity Reaction Status Date / Time No Known Allergies Allergy Verified 02/12/19 23:37 Home Medications: Ambulatory Orders metFORMIN HCL [Metformin HCl] 500 mg PO BID 08/30/16 Insulin (Levemir) [Levemir Vial] 0 unit SQ DAILY 07/09/18 Naproxen [Naprosyn -] 500 mg PO BID #30 tablet 07/09/18 Nitrofurantoin Monohyd/M-Cryst [Macrobid -] 100 mg PO BID #14 capsule 07/09/18 Clindamycin [Cleocin -] 300 mg PO TID #21 capsule 02/13/19 COPD: No Diabetes: Yes - Immunization History Immunization Up to Date: Yes - Suicide/Smoking/Psychosocial Hx Smoking History: Never smoked Have you smoked in the past 12 months: No Information on smoking cessation initiated: No Hx Alcohol Use: No Drug/Substance Use Hx: No Substance Use Type: None *Physical Exam - Vital Signs Last Vital Signs Temp Pulse Resp BP Pulse Ox 98.3 F 102 H 20 193/98 H 99 02/12/19 23:37 02/12/19 23:37 02/12/19 23:37 02/12/19 23:37 02/12/19 23:37 *DC/Admit/Observation/Transfer Diagnosis at time of Disposition: Pain, dental - Discharge Dispostion Disposition: HOME Condition at time of disposition: Good Decision to Admit order: No - Prescriptions Prescriptions: Clindamycin [Cleocin -] 300 mg PO TID #21 capsule - Referrals Referrals: [facility] [Provider Group] - Patient Instructions Printed Discharge Instructions: DI for Tooth Abscess Additional Instructions: You were seen in the ER today for tooth pain. We have provided antibiotics and sent pain medication to your pharmacy. Please follow-up with your primary care doctor and a dentist within 1-2 days to discuss your visit and make sure your symptoms have improved. Please return to the ER if you have any worsening pain, development of fevers or chills, loss of consciousness, inability to tolerate food or fluids, or any other concerns. - Post Discharge Activity
--- NOTE | 2019-02-13 00:54 | PDOC ---
Attending Attestation - Resident Resident Name: JayyColeen - ED Attending Attestation I have performed the following: I have examined & evaluated the patient, The case was reviewed & discussed with the resident, I agree w/resident's findings & plan - HPI HPI: 02/13/19 02:12 43-year-old female with pain and swelling to the right face with pain to the right upper molar area as well. There is no associated fever - Physicial Exam PE: 02/13/19 02:13 agree with resident exam - Medical Decision Making 02/13/19 02:13 43-year-old female with pain and swelling to the right face Exam most consistent with dental pain and possible early/apical abscess We'll discharge with clindamycin as well as Percocet, short-term for pain Patient was advised in the presence of her daughter who is providing translation to follow-up with dentistry as soon as possible and to return if worse
[2019-02-13] MEDS ORDERED: CLINDAMYCIN HCL 150 MG CAPSULE (FP) PO ONE (01:02)
[2019-02-13] MEDS ORDERED: KETOROLAC TROMETHAMINE 60 MG/2 ML VIAL IM ONE (01:03)
[2019-02-13] MEDS ORDERED: KETOROLAC TROMETHAMINE 60 MG/2 ML VIAL ONE (01:07)
[2019-02-13] MEDS ORDERED: CLINDAMYCIN HCL 150 MG CAPSULE (FP) ONE (01:09)
== END 2019-02-13 01:34 | disposition home or self-care (01) ==
LOC: JER 23:23
PROC: 3E0233Z Introduction of Anti-inflammatory into Muscle, Percutaneous Approach (ICD-10-PCS; principal; 2019-02-12)
DX: K08.89 Other specified disorders of teeth and supporting structures (principal); E11.9 Type 2 diabetes mellitus without complications; Z79.4 Long term (current) use of insulin
CPT/HCPCS: 99281-25

== ENCOUNTER 2022-11-24 12:04 | Observation (INO) | payer OTHER ==
[2022-11-24 12:59] LABS: EPI CELLS >36 /uL (0-25.1); HYALINE CASTS 1 /uL (0-3.1); URINE APPEARANCE TURBID; URINE BACTERIA >9,000 /uL (0-1359); URINE BILIRUBIN NEGATIVE (NEGATIVE); URINE COLOR YELLOW; URINE GLUCOSE (UA) NEGATIVE (NEGATIVE); URINE KETONE TRACE (NEGATIVE); URINE LEUK ESTERASE 3+ (NEGATIVE); URINE NITRITE POSITIVE (NEGATIVE); URINE PROTEIN 2+ (NEGATIVE); URINE RBC 197 /uL (0-23.9); URINE WBC 6816 /uL (0-25.8)
[2022-11-24 13:12] LABS: BASO % 0.2 % (0-2.0); EOS % 0.1 % (0-4.5); HEMOGLOBIN 12.1 GM/dL (10.7-15.3); LYMPH % 9.6 % (8-40); MCHC 34.7 g/dl (32.0-36.0); MEAN CELL VOLUME 89.3 fl (80-96); MEAN PLT VOLUME 7.6 fl (7.5-11.1); MONO % 7.4 % (3.8-10.2); NEUT % 82.7 % (42.8-82.8); PLATELET COUNT 181 10^3/uL (134-434); RBC 3.92 M/mm3 (3.60-5.2); RDW 13.1 % (11.6-15.6); WHITE BLOOD COUNT 13.4 K/mm3 (4.0-10.0)
[2022-11-24 13:48] LABS: ALBUMIN 3.5 g/dl (3.4-5.0); BLOOD UREA NITROGEN 13.6 mg/dL (7-18); CALCIUM 8.9 mg/dL (8.5-10.1)
[2022-11-24 13:51] LABS: CREATININE 0.6 mg/dL (0.55-1.3)
[2022-11-24 13:53] LABS: BILIRUBIN,TOTAL 0.4 mg/dL (0.2-1); TOT PROT 6.8 g/dl (6.4-8.2)
[2022-11-24] MEDS ORDERED: ONDANSETRON 4 MG/2 ML VIAL IVPUSH ONE (14:30)
[2022-11-24] MEDS ORDERED: ACETAMINOPHEN 1000 MG/100 ML BAG IVPB ONE (14:30)
[2022-11-24] MEDS ORDERED: SODIUM CHLORIDE 0.9% 1000 ML INFUS.BAG IV ONE (14:31)
[2022-11-24] MEDS ORDERED: ACETAMINOPHEN INJECTION 100 ML IVPB ONE (14:33)
[2022-11-24] MEDS ORDERED: ONDANSETRON 4 MG/2 ML VIAL ONE (14:33)
[2022-11-24] MEDS ORDERED: CEFTRIAXONE 1,000 MG in DEXTROSE 5%-WATER - 50 ML IVPB ONE (15:45)
[2022-11-24] MEDS ORDERED: CEFTRIAXONE 1 GM/50 ML BAG ONE (16:10)
[2022-11-24] MEDS ORDERED: LACTATED RINGERS SOLUTION 1,000 ML IV SCH (18:45)
[2022-11-24] MEDS ORDERED: ONDANSETRON 4 MG/2 ML VIAL IVPUSH PRN (18:46)
[2022-11-24] MEDS ORDERED: traMADol HCL 50 MG TABLET PO PRN (18:48)
[2022-11-24] MEDS ORDERED: SODIUM CHLORIDE 1,000 ML IV SCH (19:15)
[2022-11-24] MEDS ORDERED: POLYETHYLENE GLYCOL (HEALTHYLAX) 3350 17 GM PACKET PO PRN (20:36)
[2022-11-24] MEDS ORDERED: SENNOSIDES 8.6MG TABLET (FP) PO SCH (22:00)
[2022-11-24] MEDS ORDERED: ACETAMINOPHEN 500 MG TABLET (FP) PO PRN (22:00)
[2022-11-25] MEDS ORDERED: SENNOSIDES 8.6MG TABLET (FP) PO ONE (01:53)
[2022-11-25] MEDS: INSULIN SLIDING SCALE (NOVOLOG) 1 VIAL SQ SCH ×3 (02:01→11:40)
[2022-11-25] MEDS: INSULIN (LEVEMIR) 100 UNITS/ML UNITS SQ SCH ×2 (02:01→10:47)
[2022-11-25] MEDS ORDERED: KETOROLAC TROMETHAMINE 30 MG/1 ML VIAL IVPUSH ONE (04:07)
[2022-11-25 04:16] VITALS: BMI 20.2
[2022-11-25] MEDS: POLYETHYLENE GLYCOL (HEALTHYLAX) 3350 17 GM PACKET PO SCH ×2 (04:45→10:48)
[2022-11-25] MEDS ORDERED: INSULIN (NOVOLOG) ASPART 100 UNITS/ML 10ML VIAL ONE ×4 (05:08→11:44)
[2022-11-25 08:22] LABS: BASO % 0.2 % (0-2.0); EOS % 0.3 % (0-4.5); HEMATOCRIT 31.3 % (32.4-45.2); LYMPH % 12.6 % (8-40); MCH 31.8 pg (25.7-33.7); MCHC 35.2 g/dl (32.0-36.0); MEAN CELL VOLUME 90.2 fl (80-96); MEAN PLT VOLUME 7.6 fl (7.5-11.1); MONO % 7.9 % (3.8-10.2); PLATELET COUNT 161 10^3/uL (134-434); RBC 3.47 M/mm3 (3.60-5.2); RDW 13.4 % (11.6-15.6); WHITE BLOOD COUNT 11.1 K/mm3 (4.0-10.0)
[2022-11-25 08:28] VITALS: RESP 18
[2022-11-25 08:52] LABS: CALCIUM 8.1 mg/dL (8.5-10.1)
[2022-11-25 08:53] LABS: BLOOD UREA NITROGEN 11.9 mg/dL (7-18); MAGNESIUM 1.9 mg/dL (1.8-2.4)
[2022-11-25 08:56] LABS: CREATININE 0.5 mg/dL (0.55-1.3); PHOSPHOROUS 3.1 mg/dL (2.5-4.9)
[2022-11-25 08:57] LABS: BILIRUBIN,TOTAL 0.4 mg/dL (0.2-1); TOT PROT 5.9 g/dl (6.4-8.2)
[2022-11-25] MEDS ORDERED: KETOROLAC TROMETHAMINE 15 MG/ML VIAL IVPUSH PRN (10:00)
[2022-11-25] MEDS ORDERED: CEFTRIAXONE 1 GM in DEXTROSE 5%-WATER - 50 ML IVPB SCH (10:00)
[2022-11-25] MEDS ORDERED: ENOXAPARIN NA (PORCINE) 40 MG/0.4 ML DISP.SYRIN SQ SCH (10:00)
[2022-11-25] MEDS ORDERED: INSULIN (LEVEMIR) 100 UNITS/ML UNITS SQ ONE ×3 (11:08→11:45)
[2022-11-25 14:37] VITALS: BP 109/73; PULSE 98; TEMP 98.1
== END 2022-11-25 14:53 | disposition home or self-care (01) ==
LOC: JER 12:04 → JERBED 17:35 → INTOOBSV 17:35 → J7W 11-25 03:48
PROVIDERS: ADMIT Internal Medicine
PROC: 3E033NZ Introduction of Analgesics, Hypnotics, Sedatives into Peripheral Vein, Percutaneous Approach (ICD-10-PCS; principal; 2022-11-24)
PROC: 3E03329 Introduction of Other Anti-infective into Peripheral Vein, Percutaneous Approach (ICD-10-PCS; 2022-11-24)
PROC: 3E023GC Introduction of Other Therapeutic Substance into Muscle, Percutaneous Approach (ICD-10-PCS; 2022-11-24)
PROC: 3E013VG Introduction of Insulin into Subcutaneous Tissue, Percutaneous Approach (ICD-10-PCS; 2022-11-24)
PROC: 3E033GC Introduction of Other Therapeutic Substance into Peripheral Vein, Percutaneous Approach (ICD-10-PCS; 2022-11-24)
PROC: 3E0337Z Introduction of Electrolytic and Water Balance Substance into Peripheral Vein, Percutaneous Approach (ICD-10-PCS; 2022-11-24)
DX: N39.0 Urinary tract infection, site not specified (principal); N12 Tubulo-interstitial nephritis, not specified as acute or chronic; E11.9 Type 2 diabetes mellitus without complications; N13.30 Unspecified hydronephrosis; Z29.8 Encounter for other specified prophylactic measures; N83.201 Unspecified ovarian cyst, right side; K82.4 Cholesterolosis of gallbladder
CPT/HCPCS: 36415; 74177-TC; 76705-TC; 76830-TC; 80053; 81003; 82962; 83036; 83690; 83735; 84100; 84703; 85025; 87086; 87186; 93005; 93010; 96361; 96365; 96366; 96372; 96375; 99285-25; C9803-CS; G0378; Q9967; U0003; U0005